=== PATIENT | female | born 1990 | race Caucasian/White ===

== ENCOUNTER 2016-11-23 02:55 | Emergency (ER) | payer OTHER ==
[2016-11-23 03:20] LABS: Bilirubin Negative (Negative); Blood, Urine Trace (Negative); Glucose, Urine (Dipstick) Negative (Negative); Ketone, Urine Negative (Negative); Nitrite Negative (Negative); Protein, Urine (Dipstick) Trace mg/dL (Neg-Trace); Urobilinogen 0.2 mg/dL (0.2-1.0)
[2016-11-23 03:30] LABS: RBC/HPF 0-3 HPF (0-3)
[2016-11-23 03:32] LABS: Bacteria/HPF Rare-Few HPF (None Seen); Hyaline Casts/LPF 0-3 HYALINE CAST LPF (0-3 Hyaline); Squamous Epithelial 0-3 HPF (0-3)
[2016-11-23] MEDS ORDERED: Acetaminophen 500 MG TAB ONE (04:20)
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
--- NOTE | 2016-11-23 05:25 | PICIS ---
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 Nov 23, 2016 03:21, RBC/HPF 0-3 HPF, Range (0-3), *WBC/HPF 4-6 - H HPF, Range (0-3), Squamous Epithelial 0-3 HPF, Range (0-3), Bacteria/HPF Rare-Few HPF, Range (None Seen), Hyaline Casts/LPF 0-3 HYALINE CAST LPF, Range (0-3 Hyaline). Urinalysis w/ Rflx Microscopic Collection DT: [place] Nov 23, 2016 03:21, Color Yellow , Range (Yellow), Clarity Slightly Cloudy , Range (Clear), Specific Gibbon, Urine 1.010 , Range (1.005-1.030), pH, Urine 5.5 , Range (5.0-9.0), *Leukocyte Small - H , Range (Negative), Nitrite Negative , Range (Negative), Protein, Urine (Dipstick) Trace mg/dL, Range (Neg-Trace), Glucose, Urine (Dipstick) Negative mg/dL, Range (Negative), Ketone, Urine Negative mg/dL, Range (Negative), Urobilinogen 0.2 mg/dL, Range (0.2-1.0), Bilirubin Negative , Range (Negative), *Blood, Urine Trace - H , Range (Negative). Test, Urine (BHCG) Collection DT: [place] Nov 23, 2016 03:21, * Test - Urine (BHCG) POSITIVE - H , Range (NEGATIVE), Method of sensitivity- &a-1R&a+25V*p+0X*s9060M*c202B*c15G*c2P*p-0X&a-25V&a+1R Name: Sadia Gibson : 1990 F26 MedRec: [id number] AcctNum: [id number] Prepared: Ana Paula Nov 23, 2016 08:41 by Interface Page 10 of 11 pMD [facility] EMERGENCY RECORD Indeterminant: results should be repeated, after 48 hours. Positive: results may be detected as early as 4-5 days before a first missed menses. Elimination of BHCG-, Elimination following first trimester D&C: 29-44 Days , Elimination following term : 8-24 Days , Specific Gibbon 1.010 , Range (1.002-1.036), A dilute urine specimen may, not contain sales and marketing representative levels of hCG. If is still, suspected, a first morning urine specimen OR a random blood specimen should, be obtained from the patient 48-72 hours later and re-tested. , . [place]: PRASANTH=JIMY Villalobos, Jacoby LIN=MD Amie, Holden ANTHONY=JIMY Ramírez, Wilver &a-1R&a+25V*p+0X*v6701A*c202B*c15G*c2P*p-0X&a-25V&a+1R Name: Gibson Sadia K : 1990 F26 MedRec: [id number] AcctNum: [id number] Prepared: [place] Paula Nov 23, 2016 08:41 by Interface Page 11 of 11 pMD MTDD
--- NOTE | 2016-11-23 13:24 | RAD ---
RIGHT WRIST 3 VIEWS: Date: 11/23/16 FINDINGS: No fracture or carpal abnormality seen. The carpal relations seem normal. IMPRESSION: No acute findings. POS: HOME
--- NOTE | 2016-11-23 13:25 | RAD ---
LEFT ELBOW 4 VIEWS: Date: 11/23/16 FINDINGS: No fracture or joint effusion seen. All bones appear intact. IMPRESSION: No acute findings. POS: HOME
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
== END 2016-11-23 05:07 | disposition home or self-care (01) ==
LOC: BURERS 02:55
DX: O9A.211 Injury, poisoning and certain other consequences of external causes complicating pregnancy, first trimester (principal); S63.501A Unspecified sprain of right wrist, initial encounter; S13.9XXA Sprain of joints and ligaments of unspecified parts of neck, initial encounter; S00.12XA Contusion of left eyelid and periocular area, initial encounter; S60.211A Contusion of right wrist, initial encounter; S50.02XA Contusion of left elbow, initial encounter; S20.222A Contusion of left back wall of thorax, initial encounter; S20.221A Contusion of right back wall of thorax, initial encounter; S00.81XA Abrasion of other part of head, initial encounter; S50.812A Abrasion of left forearm, initial encounter; Y04.8XXA Assault by other bodily force, initial encounter; Z79.899 Other long term (current) drug therapy; Z3A.01 Less than 8 weeks gestation of pregnancy
CPT/HCPCS: 70450; 70486; 72125; 81003; 81015; 81025